=== PATIENT | female | born 1965 | race Caucasian/White ===

== ENCOUNTER → 2017-02-24 | Outpatient (CLI) | payer BC ==
[~2017-02-24] MED LIST: ABILIFY5 MG PO; ADVAIR 2501 DISK W/D PO; ALBUTEROL17 GM INH; ATIVAN; ATIVAN PO; CHANTIX1 MG BC; LEXAPRO; LEXAPRO PO; TYLOX1 CAP 5/50 PO
--- NOTE | ~2017-02-24 | CT55 ---
[facility] A Service of [facility] RADIOLOGY TEXT RESULTS PATIENT: BUBBA SPRING LOCATION: [facility] : [birth year] UNIT #: [id number] AGE: [address]: Rebecca Boston MD SEX: F ORDER DR: [id number] [facility]. [place], [place] [address] [id number] O MR#: [id number] Acc #: [id number] NAME: BUBBA SPRING : 1965 SEX: F STUDY DATE/TIME: 02/24/2017 11:19 UNIT: [facility] ROOM: STUDY DESCRIPTION: CT Chest W Con Attending Physician: Rebecca Boston M.D. Referring Physician: Rebecca Boston M.D. Ordering Physician: Rebecca Boston M.D. Primary Care Physician: Susana Ye M.D. MEDICAL IMAGING REPORT This report is preliminary unless electronic signature is present EXAM CT chest. INDICATIONS Leukocytosis. Increasing cough. TECHNIQUE CT of the chest utilizing 70 mL Isovue-370 IV contrast. Coronal and sagittal reconstructions were obtained. This CT exam was performed with one or more of the following radiation dose reduction techniques: automatic exposure control, adjustment of mA and/or kV according to patient size, and iterative reconstruction. COMPARISON CT chest, 08/04/2013. FINDINGS There is moderate emphysema in the lungs. No focal consolidation. Central airways are patent. Patient has a benign calcified granuloma in the superior segment left lower lobe. No pathologically enlarged mediastinal or hilar lymph nodes. No pericardial or pleural effusion. Limited images of the upper abdomen were obtained. There is no significant abnormalities. No acute osseous abnormalities. IMPRESSION 1. Moderate emphysema. 2. No acute findings in the chest. [facility] A Service [facility] RADIOLOGY TEXT RESULTS PATIENT: BUBBA SPRING LOCATION: [facility] : 65 UNIT #: [id number] AGE: [address]: eRbecca Boston MD SEX: F ORDER DR: Dictated by... Yonatan Blake M.D. THIS IS AN ELECTRONICALLY VERIFIED REPORT Yonatan Blake M.D. at 02/25/2017 4:01 PM RPKavon/zoe TD: 02/25/2017 13:31 JOB #: [id number] MEDICAL IMAGING REPORT Page 1 of 1 COPY
[2017-02-24 17:16] LABS: POC - CREATININE 0.76 mg/dL (0.44-1.03); POC - GFR >60.0 mL/min (>60)
== END | disposition home or self-care (01) ==
LOC: CCAT 09:22
PROVIDERS: Internal Medicine Hematology
DX: D72.829 Elevated white blood cell count, unspecified (principal); J43.9 Emphysema, unspecified
CPT/HCPCS: 71260; 82565; Q9967

== ENCOUNTER → 2017-04-07 | Outpatient (CLI) | payer BC ==
--- NOTE | ~2017-04-07 | TH ---
Unit #: [id number] #: [id number] Patient: BUBBA SPRING [id number] [address] [address] [id number] O MR#: [id number] NAME: BUBBA SPRING : 1965 SEX: F STUDY DATE/TIME: 04/07/2017 UNIT: [facility] ROOM: STUDY DESCRIPTION: Exercise stress test - Nuclear Attending Physician: Devon Simon M.D. Referring Physician: Devon Simon M.D. Primary Care Physician: Susana Ye M.D. CARDIOLOGY REPORT PROCEDURE PERFORMED Exercise Cardiolite stress test - Nuclear portion. PROCEDURE Using technetium 99m-labeled Cardiolite, rest and stress SPECT images were obtained. Multiple SPECT images were obtained in various views, including horizontal and vertical long axis and short axis views of the left ventricle. Images were obtained by gated SPECT method. The patient was administered 10.6 mCi of Cardiolite at rest. The patient was administered 33.3 mCi of Cardiolite at peak exercise. Total exercise time is 6 minutes. On the stress images, there is normal perfusion noted. The rest images show normal perfusion. Comparing the rest and stress images, there is no stress-induced ischemia noted. The left ventricular ejection fraction is calculated to be 78%. There is no focal wall motion abnormality seen. CONCLUSION 1. No stress-induced ischemia noted. 2. The left ventricular ejection fraction is calculated to be 78%. 3. There is no focal wall motion abnormality seen. 4. Normal exercise Cardiolite stress test. Dictated by... Rhea Calderón/blanche TD: 04/08/2017 10:28 JOB #: [id number] CARDIOLOGY REPORT Page 1 of 1 X Chaya Philip MD <ELECTRONICALLY SIGNED> 04/30/17 1524 CARDIOLOGY REPORT
== END | disposition home or self-care (01) ==
LOC: CNUC 03-06 07:00
DX: R06.02 Shortness of breath (principal); R53.83 Other fatigue; I36.1 Nonrheumatic tricuspid (valve) insufficiency; I51.89 Other ill-defined heart diseases
CPT/HCPCS: 78452; 93017; 93306; A9500